=== PATIENT | female | born 1985 ===

== ENCOUNTER → 2019-02-05 | Outpatient (CLI) | payer OTHER | LOC: FIMAGING 17:13 | PROVIDERS: ATTEND Midwife | DX: O20.8 Other hemorrhage in early pregnancy (principal); O28.4 Abnormal radiological finding on antenatal screening of mother; O99.280 Endocrine, nutritional and metabolic diseases complicating pregnancy, unspecified trimester; Z3A.01 Less than 8 weeks gestation of pregnancy ==